=== PATIENT | female | born 1980 | race Caucasian/White ===

== ENCOUNTER 2017-03-16 17:09 | Emergency (ER) | payer MEDICAID ==
[~2017-03-16] VITALS: Ht 157.5 cm; Wt 59.2 kg
[~2017-03-16 17:09] MED LIST: BIRTH CONTROL; BIRTH CONTROL PO; HYDR-3240 PO; IBUP-1222 PO; ONDA-39 PO; PARO10TA24 PO; PARO20TA55 PO
[2017-03-16] MEDS ORDERED: ACETAMINOPHEN 325 MG TABLET PO ONE (17:30)
[2017-03-16] MEDS ORDERED: SODIUM CHLORIDE FLUSH 10ML SYR IVF ONE (17:30)
[2017-03-16] MEDS ORDERED: SODIUM CHLORIDE 0.9% 1,000ML IVBOLUS ONE ×2 (17:30→18:00)
[2017-03-16] MEDS ORDERED: KETOROLAC 30 MG/1 ML ONE (17:58)
[2017-03-16] MEDS ORDERED: KETOROLAC 30 MG/1 ML IVPush ONE (18:00)
[2017-03-16 18:04] LABS: BLOOD UREA NITROGEN 9 mg/dL (7-18)
[2017-03-16] MEDS ORDERED: ACETAMINOPHEN 325 MG TABLET ONE (18:14)
[2017-03-16 18:55] VITALS: BP 111/62
== END 2017-03-16 19:25 | disposition home or self-care (01) ==
LOC: ED 19:24
DX: M79.1 Myalgia (principal); J02.9 Acute pharyngitis, unspecified; C50.919 Malignant neoplasm of unspecified site of unspecified female breast
CPT/HCPCS: 36415; 80048; 81001; 82040; 83605; 83735; 84145; 85025; 96361; 96374; 99284; J1885; J7030

== ENCOUNTER → 2017-03-19 | Outpatient (CLI) | payer MEDICAID ==
[~2017-03-19] MED LIST changes: +LIDOCAINE 1%, 20ML ONE; +VISIPAQUE 270 MG/ML, 50ML BOTTLE ONE
== END | disposition home or self-care (01) ==
LOC: RAD 08:14
PROVIDERS: ATTEND Internal Medicine Hematology & Oncology
DX: Z51.11 Encounter for antineoplastic chemotherapy (principal); Z45.2 Encounter for adjustment and management of vascular access device; C50.111 Malignant neoplasm of central portion of right female breast
CPT/HCPCS: 36598; 76000; J1642; J3490; Q9966

== ENCOUNTER 2017-04-01 12:51 | Day surgery (SDC) | payer MEDICAID ==
[~2017-04-01] VITALS: Ht 157.5 cm; Wt 59.0 kg
[~2017-04-01 12:51] MED LIST changes: -LIDOCAINE 1%, 20ML ONE; -VISIPAQUE 270 MG/ML, 50ML BOTTLE ONE
[2017-04-01 13:08] VITALS: BP 113/72
[2017-04-01] MEDS ORDERED: CEFAZOLIN PMX 1GM/50ML 50 ML IVPB SCH (13:30)
[2017-04-01] MEDS ORDERED: MIDAZOLAM 1 MG/ML, 5ML ONE ×2 (14:05→14:43)
[2017-04-01] MEDS ORDERED: FLUMAZENIL 0.1 MG/1 ML, 5ML ONE (14:05)
[2017-04-01] MEDS ORDERED: LIDOCAINE 2%, 20ML ONE ×2 (14:05→14:42)
[2017-04-01] MEDS ORDERED: FENTANYL PF 100 MCG/2ML ONE ×2 (14:05→14:43)
[2017-04-01] MEDS ORDERED: NALOXONE 1 MG/ML, 2ML ONE (14:05)
== END 2017-04-01 16:40 ==
LOC: RAD 12:51
PROVIDERS: ATTEND Internal Medicine Hematology & Oncology
DX: C50.112 Malignant neoplasm of central portion of left female breast (principal)
CPT/HCPCS: 36561; 36590; 76937; 77001; 99156; 99157; C1788; C1894; J0690; J1642; J2250; J3010; J3490; J2310

== ENCOUNTER 2017-05-16 12:24 | Emergency (ER) | payer MEDICAID ==
[~2017-05-16] VITALS: Ht 157.5 cm; Wt 58.3 kg
[~2017-05-16 12:24] MED LIST changes: +LORA0.5T PO
[2017-05-16] MEDS ORDERED: OXYMETAZOLINE NASAL SPRAY 0.05%, 15ML ONE (12:43)
[2017-05-16] MEDS ORDERED: PHENYLEPHRINE NASAL 1%, 30ML DROPS NAS ONE (13:00)
[2017-05-16] MEDS ORDERED: SILVER NITRATE STICK TP ONE (13:16)
[2017-05-16 13:42] LABS: BLOOD UREA NITROGEN 24 mg/dL (7-18)
[2017-05-16] MEDS ORDERED: LORazepam 0.5MG TABLET ONE (13:52)
[2017-05-16] MEDS ORDERED: LORazepam 0.5MG TABLET PO ONE (14:00)
[2017-05-16 14:03] LABS: DIFF TOTAL CELLS COUNTED 100 CELL DIFF
[2017-05-16 14:06] LABS: VERIFY COUNTS? YES
[2017-05-16 14:20] VITALS: BP 102/65
== END 2017-05-16 14:22 | disposition home or self-care (01) ==
LOC: ED 13:18
DX: R04.0 Epistaxis (principal); C50.919 Malignant neoplasm of unspecified site of unspecified female breast; F41.0 Panic disorder [episodic paroxysmal anxiety]
CPT/HCPCS: 30901; 36415; 80048; 82040; 85025; 85610; 85730

== ENCOUNTER 2017-06-08 19:16 | Observation (INO) | payer MEDICAID ==
[~2017-06-08] VITALS: Ht 157.5 cm; Wt 60.1 kg
[2017-06-08] MEDS ORDERED: SODIUM CHLORIDE 0.9% 1,000ML IVBOLUS ONE ×2 (20:00→21:00)
[2017-06-08] MEDS ORDERED: SODIUM CHLORIDE FLUSH 10ML SYR IVF ONE (20:00)
[2017-06-08 20:03] LABS: ASPARTATE AMINO TRANSFERASE 12 U/L (15-37); BLOOD UREA NITROGEN 14 mg/dL (7-18)
[2017-06-08 20:29] LABS: DIFF TOTAL CELLS COUNTED 100 CELL DIFF
[2017-06-08 20:54] LABS: ANISOCYTOSIS 1+; VERIFY COUNTS? YES
[2017-06-08] MEDS ORDERED: CEFTRIAXONE PMX 2GM/50ML 50 ML IV SCH (21:00)
[2017-06-08] MEDS ORDERED: CEFTRIAXONE PMX 2GM/50ML 50 ML ONE (21:05)
[2017-06-08] MEDS ORDERED: POTASSIUM CHLORIDE 20 MEQ TAB.ER.PRT ONE (21:14)
[2017-06-08] MEDS ORDERED: ACETAMINOPHEN 325 MG TABLET ONE (21:14)
[2017-06-08] MEDS ORDERED: ONDA4TAB13 SL (21:19)
[2017-06-08] MEDS ORDERED: AMOX875T PO (21:29)
[2017-06-08] MEDS ORDERED: ACETAMINOPHEN 325 MG TABLET PO ONE (21:30)
[2017-06-08] MEDS ORDERED: POTASSIUM CHLORIDE 20 MEQ TAB.ER.PRT PO ONE (21:30)
[2017-06-08] MEDS ORDERED: ONDANSETRON 2MG/ML, 2ML IVPush PRN (23:30)
[2017-06-08] MEDS ORDERED: ENOXAPARIN 40 MG/0.4 ML SQ SCH (23:30)
[2017-06-08] MEDS ORDERED: ACETAMINOPHEN 325 MG TABLET PO PRN (23:30)
[2017-06-08] MEDS ORDERED: LORazepam 0.5MG TABLET PO SCH (23:30)
[2017-06-08] MEDS ORDERED: HYDROcodone/APAP 5/325 TABLET PO PRN (23:30)
[2017-06-08 23:47] VITALS: BP 90/56
[2017-06-09] MEDS: D5%-0.45NACL+KCL 20MEQ 1,000 ML IV SCH ×2 (00:17→08:42)
[2017-06-09 02:00] VITALS: BP 102/53
[2017-06-09] MEDS ORDERED: SODIUM CHLORIDE 0.9% 1,000ML IVBOLUS ONE (02:00)
[2017-06-09 05:29] LABS: DIFF TOTAL CELLS COUNTED 100 CELL DIFF
[2017-06-09 05:32] LABS: VERIFY COUNTS? YES
[2017-06-09 05:33] LABS: ANISOCYTOSIS 1+
[2017-06-09 05:59] LABS: BLOOD UREA NITROGEN 7 mg/dL (7-18)
[2017-06-09 08:40] VITALS: BP 111/78
[2017-06-09] MEDS ORDERED: AMOXICILLIN 500 MG CAPSULE PO SCH (09:00)
== END 2017-06-09 11:55 | disposition home or self-care (01) ==
LOC: ED 21:13 → EDIP 22:24 → INTOOBSV 22:24 → 3NE 23:27 → DCLOUNGE 06-09 11:15
PROVIDERS: ADMIT Family Medicine; ATTEND Family Medicine
DX: R65.10 Systemic inflammatory response syndrome (SIRS) of non-infectious origin without acute organ dysfunction (principal); C50.919 Malignant neoplasm of unspecified site of unspecified female breast; D70.9 Neutropenia, unspecified; E87.6 Hypokalemia; J02.0 Streptococcal pharyngitis; R50.81 Fever presenting with conditions classified elsewhere; R19.7 Diarrhea, unspecified; F41.0 Panic disorder [episodic paroxysmal anxiety]; F41.9 Anxiety disorder, unspecified; R53.81 Other malaise; Z85.3 Personal history of malignant neoplasm of breast
CPT/HCPCS: 36415; 71020; 80048; 80053; 81003; 83605; 83690; 84145; 84703; 85025; 87040; 87150; 96361; 96365; 96366; 96367; 99285; G0378; J0696; J3480; J7030

== ENCOUNTER 2017-07-02 06:46 | Inpatient (IN) | payer MEDICAID ==
[~2017-07-02] VITALS: Ht 157.5 cm; Wt 62.2 kg
[~2017-07-02 06:46] MED LIST changes: +AMOX875T PO; +ONDA4TAB13 SL
[2017-07-02] MEDS ORDERED: SODIUM CHLORIDE FLUSH 10ML SYR IVF ONE (07:30)
[2017-07-02] MEDS ORDERED: SODIUM CHLORIDE 0.9% 1,000ML IVBOLUS ONE (07:30)
[2017-07-02] MEDS ORDERED: KETOROLAC 30 MG/1 ML IVPush ONE (07:30)
[2017-07-02] MEDS ORDERED: KETOROLAC 30 MG/1 ML ONE (07:34)
[2017-07-02 07:50] LABS: ASPARTATE AMINO TRANSFERASE 12 U/L (15-37); BLOOD UREA NITROGEN 7 mg/dL (7-18)
[2017-07-02 08:21] LABS: HEMATOCRIT 35.3 % (34.6-47.8); HEMOGLOBIN 11.9 g/dL (11.7-16.4)
[2017-07-02 08:30] LABS: DIFF TOTAL CELLS COUNTED 100 CELL DIFF; WHITE BLOOD COUNT 0.7 x10^3/uL (3.4-10)
[2017-07-02 08:32] LABS: VERIFY COUNTS? YES
[2017-07-02] MEDS ORDERED: LEVOFLOXACIN/PMX 500MG/100ML 100 ML IV SCH (09:00)
[2017-07-02] MEDS ORDERED: TBO-FILGRASTIM 300 MCG/0.5 ML SQ SCH (09:00)
[2017-07-02] MEDS ORDERED: LEVOFLOXACIN/PMX 500MG/100ML 100 ML ONE (09:07)
[2017-07-02] MEDS ORDERED: PHARMACY MAY ADJ FOR RENAL FX MC SCH (12:00)
[2017-07-02] MEDS ORDERED: ONDANSETRON 2MG/ML, 2ML IVPush PRN (12:00)
[2017-07-02] MEDS ORDERED: LIDOCAINE/PRILOCAINE CRM W/TEG 5GM TP PRN (12:00)
[2017-07-02 12:15] VITALS: BP 117/57
[2017-07-02 12:18] VITALS: BP 117/57
[2017-07-02] MEDS: HYDROcodone/APAP 5/325 TABLET PO PRN ×2 (12:54→21:17)
[2017-07-02 13:42] VITALS: BP 103/65
[2017-07-02] MEDS ORDERED: [UNRECOGNIZED DRUG - REMARK] MC SCH (15:30)
[2017-07-02] MEDS ORDERED: LORazepam 0.5MG TABLET PO SCH (15:30)
[2017-07-02 16:45] VITALS: BP 122/77
[2017-07-02] MEDS ORDERED: LORazepam 1MG TABLET ONE (16:59)
[2017-07-02] MEDS: LORazepam 0.5MG TABLET PO PRN (17:02)
[2017-07-02 20:57] VITALS: BP 102/64
[2017-07-03 02:35] VITALS: BP 97/61
[2017-07-03 04:26] LABS: HEMOGLOBIN 10.6 g/dL (11.7-16.4)
[2017-07-03 04:35] LABS: BLOOD UREA NITROGEN 5 mg/dL (7-18)
[2017-07-03 04:38] LABS: WHITE BLOOD COUNT 1.3 x10^3/uL (3.4-10)
[2017-07-03 04:41] LABS: DIFF TOTAL CELLS COUNTED 100 CELL DIFF
[2017-07-03 04:45] LABS: VERIFY COUNTS? YES
[2017-07-03 07:14] VITALS: BP 98/63
[2017-07-03] MEDS: TBO-FILGRASTIM 300 MCG/0.5 ML SQ SCH (10:01)
[2017-07-03] MEDS: LEVOFLOXACIN/PMX 750MG/150ML 150 ML IV SCH (10:01)
[2017-07-03] MEDS: LORazepam 0.5MG TABLET PO PRN (12:53)
[2017-07-03 13:43] VITALS: BP 103/63
[2017-07-03 19:30] VITALS: BP 97/56
[2017-07-03] MEDS: HYDROcodone/APAP 5/325 TABLET PO PRN (20:16)
[2017-07-04 01:34] VITALS: BP 101/65
[2017-07-04 04:28] LABS: HEMOGLOBIN 10.8 g/dL (11.7-16.4); WHITE BLOOD COUNT 3.3 x10^3/uL (3.4-10)
[2017-07-04 05:41] LABS: DIFF TOTAL CELLS COUNTED 100 CELL DIFF
[2017-07-04 05:46] LABS: VERIFY COUNTS? YES
[2017-07-04 05:48] LABS: POLYCHROMASIA 1+
[2017-07-04 07:53] VITALS: BP 101/66
[2017-07-04] MEDS: LEVOFLOXACIN/PMX 750MG/150ML 150 ML IV SCH ×2 (09:43→09:44)
[2017-07-04] MEDS: TBO-FILGRASTIM 300 MCG/0.5 ML SQ SCH (09:44)
[2017-07-04 13:40] VITALS: BP 94/63
[2017-07-04] MEDS ORDERED: LEVO500T8 PO (15:29)
== END 2017-07-04 17:06 | disposition home or self-care (01) | DRG 810 ==
LOC: ED 09:04 → EDIP 09:19 → 3NW 11:25
PROVIDERS: ADMIT Family Medicine; ATTEND Family Medicine
DX: D70.1 Agranulocytosis secondary to cancer chemotherapy (principal); D69.6 Thrombocytopenia, unspecified; E11.9 Type 2 diabetes mellitus without complications; F41.1 Generalized anxiety disorder; J45.909 Unspecified asthma, uncomplicated; T45.1X5A Adverse effect of antineoplastic and immunosuppressive drugs, initial encounter; Z85.3 Personal history of malignant neoplasm of breast
CPT/HCPCS: 36415; 71010; 80048; 80053; 81003; 83605; 84145; 85025; 87040; 87086; 93005; J1885; J1956; J1447; J7030

== ENCOUNTER → 2017-07-13 | Outpatient (CLI) | payer MEDICAID ==
[~2017-07-13] MED LIST changes: +LEVO500T8 PO
== END | disposition home or self-care (01) ==
LOC: CFH 15:03
PROVIDERS: ATTEND Internal Medicine Hematology & Oncology
DX: I37.1 Nonrheumatic pulmonary valve insufficiency (principal); C50.112 Malignant neoplasm of central portion of left female breast; Z92.21 Personal history of antineoplastic chemotherapy
CPT/HCPCS: 93306

== ENCOUNTER → 2017-07-31 | Outpatient (CLI) | payer MEDICAID ==
[~2017-07-31] MED LIST changes: -ONDA-39 PO; +ONDA4TAB12 PO; -PARO10TA24 PO; +PARO10TA56 PO; -PARO20TA55 PO; +PARO20TA98 PO
== END | disposition home or self-care (01) ==
LOC: ROC 10:55
PROVIDERS: ATTEND Radiology Radiation Oncology
DX: C50.912 Malignant neoplasm of unspecified site of left female breast (principal)
CPT/HCPCS: 99214; G0463

== ENCOUNTER 2017-08-20 23:55 | Emergency (ER) | payer MEDICAID ==
[~2017-08-20] VITALS: Ht 157.5 cm; Wt 59.0 kg
[2017-08-20 23:56] VITALS: BP 122/86
[2017-08-21] MEDS ORDERED: SODIUM CHLORIDE 0.9% 1,000ML IVBOLUS ONE (00:30)
[2017-08-21] MEDS ORDERED: ONDANSETRON 2MG/ML, 2ML IVPush ONE (00:30)
[2017-08-21] MEDS ORDERED: MORPHINE SULFATE 4 MG/ML, 1ML IVPush PRN (00:30)
[2017-08-21 00:38] LABS: HEMOGLOBIN 12.4 g/dL (11.7-16.4); WHITE BLOOD COUNT 6.9 x10^3/uL (3.4-10)
[2017-08-21 00:51] LABS: ASPARTATE AMINO TRANSFERASE 10 U/L (15-37); BLOOD UREA NITROGEN 9 mg/dL (7-18)
[2017-08-21 01:17] LABS: PATH.CAST-FLAG NOT PRESENT; SPERM-FLAG NOT PRESENT; SRC-FLAG NOT PRESENT; XTAL-FLAG NOT PRESENT; YLC-FLAG NOT PRESENT
[2017-08-21] MEDS ORDERED: OMNIPAQUE 350 MG/ML, 100ML BOTTLE ONE (01:36)
== END 2017-08-21 03:04 | disposition home or self-care (01) ==
LOC: ED 23:59
DX: K52.89 Other specified noninfective gastroenteritis and colitis (principal)
CPT/HCPCS: 36415; 74177; 80053; 81001; 83690; 84703; 85025; 99285; Q9967

== ENCOUNTER → 2017-11-05 | Outpatient (CLI) | payer MEDICAID | END | disposition home or self-care (01) | LOC: ROC 07:00 | PROVIDERS: ATTEND Radiology Radiation Oncology | DX: C50.912 Malignant neoplasm of unspecified site of left female breast (principal) | CPT/HCPCS: 99213; G0463 ==

== ENCOUNTER → 2017-11-20 | Outpatient (CLI) | payer MEDICAID | END | disposition home or self-care (01) | LOC: ROC 09:07 | PROVIDERS: ATTEND Radiology Radiation Oncology | DX: Z08 Encounter for follow-up examination after completed treatment for malignant neoplasm (principal); Z85.3 Personal history of malignant neoplasm of breast; Z90.12 Acquired absence of left breast and nipple | CPT/HCPCS: 99212; G0463 ==

== ENCOUNTER → 2017-12-18 | Outpatient (CLI) | payer MEDICAID | LOC: ROC 11:13 | PROVIDERS: ATTEND Radiology Radiation Oncology | DX: Z02.9 Encounter for administrative examinations, unspecified (principal) ==

== ENCOUNTER → 2017-12-18 | Outpatient (CLI) | payer MEDICAID | END | disposition home or self-care (01) | LOC: EDSTATUS 08:00 → CVU 08:16 | PROVIDERS: ATTEND Internal Medicine Hematology & Oncology | DX: C50.112 Malignant neoplasm of central portion of left female breast (principal); Z90.10 Acquired absence of unspecified breast and nipple | CPT/HCPCS: 93306 ==

== ENCOUNTER → 2018-02-10 | Outpatient (CLI) | payer OTHER, MEDICAID | END | disposition home or self-care (01) | LOC: ROC 13:49 | PROVIDERS: ATTEND Radiology Radiation Oncology | DX: C50.912 Malignant neoplasm of unspecified site of left female breast (principal) | CPT/HCPCS: 99212; G0463 ==

== ENCOUNTER 2018-05-13 17:58 | Emergency (ER) | payer OTHER ==
[~2018-05-13] VITALS: Ht 157.5 cm; Wt 57.8 kg
[~2018-05-13 17:58] MED LIST changes: +SULF-169 PO
[2018-05-13 18:00] VITALS: BP 128/91
== END 2018-05-13 18:33 | disposition left against medical advice (07) ==
LOC: ED 18:29
DX: M79.603 Pain in arm, unspecified (principal); Z53.21 Procedure and treatment not carried out due to patient leaving prior to being seen by health care provider

== ENCOUNTER 2018-07-25 11:38 | Emergency (ER) | payer MEDICAID ==
[~2018-07-25] VITALS: Ht 157.5 cm; Wt 59.0 kg
[2018-07-25 12:20] LABS: BASOPHILS # (AUTO) 0.02 x10^3/uL (0-0.1); BASOPHILS % (AUTO) 1 % (0-1); EOSINOPHILS # (AUTO) 0.03 x10^3/uL (0-0.4); EOSINOPHILS % (AUTO) 1 % (1-7); LYMPHOCYTES # (AUTO) 1.63 x10^3/uL (1-3.4); LYMPHOCYTES % (AUTO) 32 % (22-44); MD NO; MEAN CORPUSCULAR HEMOGLOBIN 30.1 pg (27.0-34.8); MEAN CORPUSCULAR HGB CONC 34.4 g/dL (32.4-35.8); MEAN CORPUSCULAR VOLUME 87.5 fL (80-100); MONOCYTES # (AUTO) 0.58 x10^3/uL (0.2-0.8); MONOCYTES % (AUTO) 12 % (2-9); NEUTROPHILS # (AUTO) 2.79 x10^3/uL (1.8-6.8); NEUTROPHILS % (AUTO) 55 % (42-75); PLATELET COUNT 236 x10^3/uL (130-400); RED BLOOD COUNT 5.07 x10^6/uL (3.82-5.3); RED CELL DISTRIBUTION WIDTH 13.9 % (9.6-15.2)
[2018-07-25 12:29] LABS: ALBUMIN 4.2 g/dL (3.4-5.0); ANION GAP 10 mmol/L (5-15); CALCIUM 9.2 mg/dL (8.5-10.1); CHLORIDE 107 mmol/L (98-107); CREATININE 0.72 mg/dL (0.55-1.02)
[2018-07-25 13:11] VITALS: BP 139/94
== END 2018-07-25 13:12 | disposition home or self-care (01) ==
LOC: ED 12:19
DX: R00.2 Palpitations (principal); R42 Dizziness and giddiness; Z85.3 Personal history of malignant neoplasm of breast
CPT/HCPCS: 36415; 71045; 80048; 82040; 85025; 93005; 99285

== ENCOUNTER → 2018-09-01 | Outpatient (CLI) | payer MEDICAID | END | disposition home or self-care (01) | LOC: RAD 10:21 | PROVIDERS: ATTEND Internal Medicine Hematology & Oncology | DX: C50.112 Malignant neoplasm of central portion of left female breast (principal); R22.1 Localized swelling, mass and lump, neck | CPT/HCPCS: 76536 ==

== ENCOUNTER 2018-09-20 09:08 | Emergency (ER) | payer MEDICAID ==
[~2018-09-20] VITALS: Ht 157.5 cm; Wt 58.3 kg
[2018-09-20 10:48] LABS: BASOPHILS # (AUTO) 0.03 x10^3/uL (0-0.1); BASOPHILS % (AUTO) 0 % (0-1); EOSINOPHILS # (AUTO) 0.13 x10^3/uL (0-0.4); EOSINOPHILS % (AUTO) 2 % (1-7); LYMPHOCYTES # (AUTO) 1.38 x10^3/uL (1-3.4); LYMPHOCYTES % (AUTO) 23 % (22-44); MD NO; MEAN CORPUSCULAR HEMOGLOBIN 29.6 pg (27.0-34.8); MEAN CORPUSCULAR HGB CONC 33.4 g/dL (32.4-35.8); MEAN CORPUSCULAR VOLUME 88.5 fL (80-100); MEAN PLATELET VOLUME 7.6 fL (7.4-10.4); MONOCYTES # (AUTO) 0.52 x10^3/uL (0.2-0.8); MONOCYTES % (AUTO) 9 % (2-9); NEUTROPHILS # (AUTO) 3.98 x10^3/uL (1.8-6.8); NEUTROPHILS % (AUTO) 66 % (42-75); PLATELET COUNT 239 x10^3/uL (130-400); RED BLOOD COUNT 4.99 x10^6/uL (3.82-5.3); RED CELL DISTRIBUTION WIDTH 13.4 % (9.6-15.2)
[2018-09-20 11:01] LABS: ALANINE AMINOTRANSFERASE 17 U/L (12-78); ALBUMIN 3.7 g/dL (3.4-5.0); ANION GAP 8 mmol/L (5-15); CALCIUM 8.3 mg/dL (8.5-10.1); CHLORIDE 110 mmol/L (98-107); CREATININE 0.57 mg/dL (0.55-1.02)
[2018-09-20 11:06] LABS: ALKALINE PHOSPHATASE 107 U/L (45-117); BILIRUBIN,TOTAL 0.6 mg/dL (0.2-1.0); TOTAL PROTEIN 7.3 g/dL (6.4-8.2)
[2018-09-20 12:17] VITALS: BP 122/80
== END 2018-09-20 12:19 | disposition home or self-care (01) ==
LOC: ED 12:03
DX: N93.8 Other specified abnormal uterine and vaginal bleeding (principal); N92.0 Excessive and frequent menstruation with regular cycle; Z85.3 Personal history of malignant neoplasm of breast
CPT/HCPCS: 36415; 76830; 80053; 84703; 85025; 99285

== ENCOUNTER 2021-07-28 11:17 | Emergency (ER) | payer MEDICAID ==
[~2021-07-28] VITALS: Ht 157.5 cm; Wt 67.6 kg
[~2021-07-28 11:17] MED LIST changes: +HYDR-2214 PO; -HYDR-3240 PO; +ONDA-89 PO; -ONDA4TAB12 PO
--- NOTE | 2021-07-28 12:20 | NUR ---
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
--- NOTE | 2021-07-28 12:21 | NUR ---
PT AMBULATORY TO ROOM FROM [facility], CHANGED INTO GOWN, MONITORS IN PLACE. PT C/O R-SIDED BACK PAIN FOR 1 WEEK THAT HAS GOTTEN WORSE. PT DENIES ANY URINARY SYMPTOMS AT THIS TIME. CALL LIGHT WITHIN REACH, BED IN LOWEST POSITION, BED RAILS UP X2
--- NOTE | 2021-07-28 12:28 | NUR ---
PA AT BS
[2021-07-28 12:31] LABS: MICROSCOPIC NOT IND
[2021-07-28] MEDS ORDERED: KETOROLAC 60 MG/2 ML ONE (12:47)
--- NOTE | 2021-07-28 12:52 | NUR ---
PT MEDICATED PER EMAR. PT RESTING ON GURNEY, NADN/VSS. CALL LIGHT WITHIN REACH. PT DENIES ANY NEEDS AT THIS TIME
[2021-07-28] MEDS ORDERED: KETOROLAC 30 MG/1 ML IM ONE (13:00)
[2021-07-28 13:22] LABS: BASOPHILS % (AUTO) 1 % (0-1); EOSINOPHILS % (AUTO) 2 % (1-7); LYMPHOCYTES % (AUTO) 32 % (22-44); MEAN CORPUSCULAR HEMOGLOBIN 26.7 pg (27.0-34.8); MEAN CORPUSCULAR HGB CONC 32.7 g/dL (32.4-35.8); MEAN PLATELET VOLUME 7.8 fL (7.4-10.4); MONOCYTES % (AUTO) 9 % (2-9); NEUTROPHILS % (AUTO) 55 % (42-75); PLATELET COUNT 305 x10^3/uL (130-400); RED BLOOD COUNT 4.85 x10^6/uL (3.82-5.3); RED CELL DISTRIBUTION WIDTH 16.8 % (9.6-15.2)
[2021-07-28 13:31] LABS: ALANINE AMINOTRANSFERASE 25 U/L (12-78); ALBUMIN 3.4 g/dL (3.4-5.0); ANION GAP 4 mmol/L (5-15); CALCIUM 8.8 mg/dL (8.5-10.1); CHLORIDE 107 mmol/L (98-107); CREATININE 0.55 mg/dL (0.55-1.02)
[2021-07-28 13:35] LABS: ALKALINE PHOSPHATASE 73 U/L (45-117); BILIRUBIN,TOTAL 0.3 mg/dL (0.2-1.0); TOTAL PROTEIN 7.1 g/dL (6.4-8.2)
--- NOTE | 2021-07-28 13:45 | NUR ---
PT TO CT
--- NOTE | 2021-07-28 14:00 | NUR ---
PT BACK FROM CT
[2021-07-28 14:07] VITALS: BP 109/65
--- NOTE | 2021-07-28 14:08 | NUR ---
PT RESTING ON СЕРГЕЙ SMITH/CH[place]OS. PT STATES SHE HAS ZERO PAIN AT THIS TIME. PT UPDATED ON POC. CALL LIGHT WITHIN REACH
--- NOTE | 2021-07-28 15:05 | NUR ---
Patient given discharge instructions and they have confirmed that they understand the instructions. Patient ambulatory with steady gait.
== END 2021-07-28 15:06 | disposition home or self-care (01) ==
LOC: ED 15:00
DX: M54.9 Dorsalgia, unspecified (principal); R10.9 Unspecified abdominal pain; Z85.3 Personal history of malignant neoplasm of breast
CPT/HCPCS: 36415; 74176; 80053; 81003; 84703; 85025; 96372; 99284; J1885